=== PATIENT | male | born 1960 | race Caucasian/White ===

== ENCOUNTER 2020-08-15 11:45 | Inpatient (IN) | payer OTHER, SELFPAY ==
[~2020-08-15] VITALS: Ht 152.4 cm; Wt 99.8 kg
[2020-08-15 11:58] VITALS: BP_SYST 147
[2020-08-15] MEDS ORDERED: ASPIRIN 325 MG TABLET PO ONE (13:00)
[2020-08-15] MEDS ORDERED: MORPHINE 4 MG/ML INJ. SYRINGE IVP ONE (13:00)
[2020-08-15 13:11] LABS: BASOPHILS % (AUTO) 0.6 % (0.0-2.0); EOSINOPHILS # (AUTO) 0.2 K/uL (0.0-0.4); EOSINOPHILS % (AUTO) 3.3 % (0.0-4.0); HEMATOCRIT 41.8 % (36-54); HEMOGLOBIN 14.8 g/dL (14.0-18.0); LYMPHOCYTES # (AUTO) 2.1 K/uL (1.0-5.5); MEAN CORPUSCULAR HEMOGLOBIN 30 pg (27-31); MEAN CORPUSCULAR HGB CONC 36 % (32-36); MEAN CORPUSCULAR VOLUME 84 fL (79.0-98.0); MONOCYTES # (AUTO) 0.5 K/uL (0.0-1.0); MONOCYTES % (AUTO) 8.5 % (1.7-9.3); NEUTROPHILS % (AUTO) 51.6 % (40.0-70.0); PLATELET COUNT (AUTO) 270 K/uL (130-430); RED BLOOD CELL COUNT(AUTO) 5.01 MIL/uL (4.2-6.2); RED CELL DISTRIBUTION WIDTH 13.8 % (9.0-15.0); WHITE BLOOD COUNT (AUTO) 5.9 K/uL (4.8-10.8)
[2020-08-15 13:15] LABS: ANION GAP 6 (5-15); CHLORIDE 104 mmol/L (98-107); CREATININE 0.87 mg/dL (0.55-1.30); GLUCOSE 120 mg/dL (70-99); POTASSIUM 4.1 mmol/L (3.5-5.1); SODIUM SERUM 141 mmol/L (136-145); UREA NITROGEN, BLOOD 8 mg/dL (8-21)
[2020-08-15 13:17] LABS: GFR AFRICAN AMERICAN 116 mL/min (>90)
[2020-08-15 13:26] LABS: ALANINE AMINOTRANSFERASE 38 U/L (12-78); ALBUMIN 3.9 g/dL (3.4-4.8); ASPARTATE AMINOTRANSFERASE 22 U/L (10-37); TOTAL BILIRUBIN 0.4 mg/dL (0.0-1.0)
[2020-08-15] MEDS ORDERED: SIMV5TAB59 PO (13:45)
[2020-08-15] MEDS ORDERED: AMLO5TAB4 PO (13:45)
[2020-08-15] MEDS ORDERED: ASA81 PO (13:45)
[2020-08-15] MEDS ORDERED: IPRATROPIUM BROM 0.5 MG/2.5 ML VIAL.NEB (ATROVENT) INH PRN (15:15)
[2020-08-15] MEDS ORDERED: ALBUTEROL SULFATE 0.083% 2.5 MG/3 ML VIAL.NEB INH PRN (15:15)
[2020-08-15 15:46] VITALS: BP_SYST 107
[2020-08-15] MEDS ORDERED: cefTRIAXone 1 GM in D5W 50 ML IV SCH (16:00)
[2020-08-15] MEDS ORDERED: IBUP-1971 PO (16:35)
[2020-08-15] MEDS ORDERED: HYDR-4272 PO (16:37)
[2020-08-15] MEDS ORDERED: IBUPROFEN 600 MG TABLET PO ONE (16:45)
[2020-08-15] MEDS ORDERED: AZITHROMYCIN 500 MG in NS 250 ML IV SCH (17:00)
[2020-08-15] MEDS ORDERED: NITSL SL (17:34)
[2020-08-15 17:40] VITALS: BP_SYST 121
[2020-08-15] MEDS ORDERED: IPRATROPIUM BROM 0.5 MG/2.5 ML VIAL.NEB (ATROVENT) INH SCH (19:00)
[2020-08-15] MEDS ORDERED: ALBUTEROL SULFATE 0.083% 2.5 MG/3 ML VIAL.NEB INH SCH (19:00)
== END 2020-08-15 17:40 | disposition home or self-care (01) | DRG 313 ==
LOC: SED 11:45 → STU 14:53
PROVIDERS: ADMIT Internal Medicine Hospice and Palliative Medicine; ATTEND Internal Medicine Hospice and Palliative Medicine
DX: R07.89 Other chest pain (principal); E78.5 Hyperlipidemia, unspecified; I10 Essential (primary) hypertension; R73.03 Prediabetes; Z79.899 Other long term (current) drug therapy; Z85.528 Personal history of other malignant neoplasm of kidney; Z79.82 Long term (current) use of aspirin; Z20.822 Contact with and (suspected) exposure to COVID-19
CPT/HCPCS: 36415; 71045; 80053; 84484; 85025; 85379; 93005; 96374; G0378; J0456; J0696; J2270; J7050; J7060

== ENCOUNTER 2024-01-27 16:19 | Emergency (ER) | payer BC, OTHER ==
[~2024-01-27] VITALS: Ht 177.8 cm; Wt 98.9 kg
[~2024-01-27 16:19] MED LIST: AMLO5TAB4 PO; ASA81 PO; NITSL SL; SIMV5TAB59 PO
[2024-01-27 16:34] VITALS: BP_SYST 152; PULSE 86; RESP 16; TEMP 98.1; O2SAT 97
[2024-01-27] MEDS: ACETAMINOPHEN 500 MG TABLET PO ONE (17:36)
[2024-01-27] MEDS: KETOROLAC TROMETHAMINE 30 MG VIAL IM ONE (17:37)
[2024-01-27] MEDS: LIDOCAINE PATCH 5% 1 EA TP ONE (17:38)
[2024-01-27] MEDS ORDERED: NAPR-690 PO (18:17)
[2024-01-27] MEDS ORDERED: LIDO700A30 TP (18:17)
[2024-01-27] MEDS ORDERED: METH-634 PO (18:17)
[2024-01-27 19:37] VITALS: BP_SYST 152; PULSE 86; RESP 16; TEMP 98.1; O2SAT 97
== END 2024-01-27 19:37 | disposition home or self-care (01) ==
LOC: SED 16:19
DX: M54.50 Low back pain, unspecified (principal); I10 Essential (primary) hypertension; E78.5 Hyperlipidemia, unspecified; Z85.528 Personal history of other malignant neoplasm of kidney; Z79.899 Other long term (current) drug therapy; Z79.82 Long term (current) use of aspirin
CPT/HCPCS: 99283; 96372; J1885